=== PATIENT | female | born 1960 | race African-American/Black ===

== ENCOUNTER 2018-08-10 18:21 | Emergency (ER) | payer OTHER, MEDICAID ==
[~2018-08-10] VITALS: Ht 160 cm; Wt 87.1 kg
[2018-08-10 18:28] VITALS: BP 114/65
--- NOTE | 2018-08-10 18:42 | NUR ---
57 Y FEMALE BIB SELF C/O N/V/D X2 DAYS AND LOWER ABDOMINAL PAIN. PAIN ACHING 10/10. BOWEL SOUNDS X4, ABDOMEN SOFT AND ROUND. LAST BM TODAY. PT STATES SHE IS HAVING STOMACH CRAMPS. VSS, [id number]. BED IS DOWN, LOCKED, BED RAIL X 1, ERMD NOTIFIED. HX OA, SARCOIDOSIS
[2018-08-10 18:51] LABS: BASOPHILS % (AUTO) 0.4 % (0.0-2.0); EOSINOPHILS % (AUTO) 0.3 % (0.0-4.0); HEMATOCRIT 43.7 % (36-48); HEMOGLOBIN 14.7 g/dL (12.0-16.0); LYMPHOCYTES # (AUTO) 1.2 K/uL (2.5-16.5); MEAN CORPUSCULAR HEMOGLOBIN 29 pg (27-31); MEAN CORPUSCULAR HGB CONC 34 g/dL (33-37); MEAN CORPUSCULAR VOLUME 86.8 fL (80-94); MONOCYTES # (AUTO) 0.5 K/uL (0.8-1.0); MONOCYTES % (AUTO) 5.7 % (1.7-9.3); NEUTROPHILS # (AUTO) 7.8 K/uL (1.8-7.7); NEUTROPHILS % (AUTO) 81.6 % (42.2-75.2); PLATELET COUNT (AUTO) 440 K/uL (140-450); RED BLOOD CELL COUNT(AUTO) 5.03 MIL/uL (4.20-5.40); RED CELL DISTRIBUTION WIDTH 13.9 % (11.6-13.7); WHITE BLOOD COUNT (AUTO) 9.6 K/uL (4.8-10.8)
[2018-08-10 19:04] LABS: ANION GAP 14.2 (8-16); CARBON DIOXIDE 25.4 mmol/L (21-32); CREATININE 0.9 mg/dL (0.6-1.3); POTASSIUM 3.6 mmol/L (3.5-5.1)
[2018-08-10 19:06] LABS: ALBUMIN 4.1 g/dL (3.4-5.0); TOTAL BILIRUBIN 0.3 mg/dL (0.0-1.0)
[2018-08-10] MEDS ORDERED: NACL 0.9% 1,000 ML IV ONE (19:30)
[2018-08-10] MEDS ORDERED: ONDANSETRON 4 MG/2 ML VIAL IVP ONE (19:30)
[2018-08-10] MEDS ORDERED: KETOROLAC 30 MG/ML VIAL IVP ONE (19:30)
[2018-08-10 20:19] LABS: APPEARANCE,URINE CLEAR (CLEAR); BILIRUBIN,URINE 1+ (NEGATIVE); BLOOD, URINE NEGATIVE (NEGATIVE); COLOR,URINE YELLOW (YELLOW); LEUKOCYTE ESTERASE ,URINE TRACE (NEGATIVE); NITRITE, URINE NEGATIVE (NEGATIVE); UGLUCOSE NEGATIVE (NEGATIVE)
[2018-08-10] MEDS ORDERED: METOCLOPRAMIDE 10 MG/2 ML INJ VIAL IVP ONE (20:35)
[2018-08-10 20:50] LABS: RBC,URINE 0-5 /HPF (0-5); TRICHOMONAS,URINE Few /HPF (None Seen); WBC,URINE 16-25 (MOD) /HPF (0-5)
--- NOTE | 2018-08-10 21:17 | NUR ---
report given to bárbara christie
[2018-08-10 22:53] VITALS: BP 109/70
--- NOTE | 2018-08-18 13:50 | NUR ---
Late entry. Confirmed with RN that 1000 ml 0.9 NS IV bolus completed at 2049
== END 2018-08-10 22:53 | disposition home or self-care (01) ==
LOC: MED 18:21
DX: T62.8X1A Toxic effect of other specified noxious substances eaten as food, accidental (unintentional), initial encounter (principal); R11.10 Vomiting, unspecified; R19.7 Diarrhea, unspecified; R10.30 Lower abdominal pain, unspecified; Y92.89 Other specified places as the place of occurrence of the external cause
CPT/HCPCS: 36415; 80053; 81001; 81025; 83690; 85025; 96361; 96374; 96375; 99283; J1885; J2405; J2765; J7030